=== PATIENT | female | born 1955 | race Caucasian/White ===

== ENCOUNTER 2022-02-22 09:33 | Emergency (ER) | payer OTHER ==
[~2022-02-22 09:33] MED LIST: Iopamidol 370 76% 125 ML VIAL FS ONE
[2022-02-22 10:15] LABS: Prothrombin Time 12.7 sec (12.0-14.7)
[2022-02-22 10:29] LABS: ALT (SGPT) 25 U/L (8-55); AST (SGOT) 24 U/L (5-34); Albumin 4.4 g/dL (3.4-4.8); Alkaline Phosphatase 58 U/L (40-110); Anion Gap 15 mmol/L (10-20); BUN (Urea Nitrogen) 13 mg/dL (9.8-20.1); Bilirubin, Total 0.4 mg/dL (0.2-1.2); Calc. Creatinine Clearance 0 mL/min (70-130); Calcium 9.8 mg/dL (7.8-10.44); Carbon Dioxide 24 mmol/L (23-31); Chloride 105 mmol/L (98-107); Estimated GFR 68; Globulin 2.6 g/dL (2.4-3.5); Glucose 99 mg/dL (80-115); Potassium 3.9 mmol/L (3.5-5.1); Sodium 140 mmol/L (136-145)
[2022-02-22 10:32] LABS: #Lymphocytes 1.5 thou/uL (1.20-3.40); #Monocytes 0.4 thou/uL (0.11-0.59); #Neutrophils 3.1 thou/uL (1.40-6.50); %Basophils 0.6 % (0.0-1.0); %Eosinophils 0.3 % (0.0-10.0); %Lymphocytes 29.5 % (21.0-51.0); %Monocytes 8.1 % (0.0-10.0); %Neutrophils 61.6 % (42.0-75.0); Hemoglobin 12.8 g/dL (12.0-16.0); Mean Corpuscular HGB CONC 31.3 g/dL (32.0-36.0); Mean Corpuscular Hemoglobin 30.2 pg (27.0-31.0); Mean Corpuscular Volume 96.5 fL (78.0-98.0); Mean Platelet Volume 11.3 fL (7.4-10.4); Platelet Count 187 thou/uL (130-400); RBC Distribution Width 11.4 % (11.5-14.5); Red Blood Cell (RBC) Count 4.23 mill/uL (4.20-5.40)
[2022-02-22 10:33] LABS: Nucleated RBC 0 % (0)
[2022-02-22] MEDS ORDERED: Aspirin Chewable 81 MG TAB ONE (11:30)
[2022-02-22 11:40] LABS: Bilirubin Negative (Negative); Blood, Urine Trace (Negative); Clarity Clear (Clear); Glucose, Urine (Dipstick) Negative (Negative); Ketone, Urine Negative (Negative); Leukocyte Negative (Negative); Nitrite Negative (Negative); Protein, Urine (Dipstick) Negative (Neg-Trace); Urobilinogen 0.2 mg/dL (Less than 2)
[2022-02-22 11:46] LABS: Bacteria/HPF Rare-Few HPF (None Seen); RBC/HPF 0-3 HPF (0-3); Squamous Epithelial 0-3 HPF (0-3); WBC/HPF None Seen HPF (0-3)
== END 2022-02-22 18:40 | disposition short-term general hospital (02) ==
LOC: MADERS 09:33
DX: R42 Dizziness and giddiness (principal); R53.1 Weakness
CPT/HCPCS: 36416; 70450; 70496; 70498; 71045; 72125; 72170; 80053; 81003; 81015; 83880; 84484; 85025; 85610; 93005; Q9967

== ENCOUNTER 2024-01-22 10:06 | Outpatient (CLI) | payer MEDICARE, OTHER | END 2024-01-22 10:07 | disposition home or self-care (01) | LOC: MADRAD 10:06 | PROVIDERS: ATTEND Family Medicine | DX: M79.642 Pain in left hand (principal) ==

== ENCOUNTER 2024-02-07 08:39 | Emergency (ER) | payer MEDICARE ==
[2024-02-07] MEDS ORDERED: Cyclobenzaprine 10 MG TAB ONE (09:31)
[2024-02-07] MEDS ORDERED: Acetaminophen 500 MG TAB ONE (09:32)
== END 2024-02-07 09:45 | disposition home or self-care (01) ==
LOC: MADERS 08:39
DX: S06.0X0A Concussion without loss of consciousness, initial encounter (principal); S01.03XA Puncture wound without foreign body of scalp, initial encounter; S01.01XA Laceration without foreign body of scalp, initial encounter; W18.00XA Striking against unspecified object with subsequent fall, initial encounter
CPT/HCPCS: 12001; 70450